=== PATIENT | male | born 1975 | race Two or more races ===

== ENCOUNTER → 2016-09-15 | Outpatient (CLI) | payer OTHER | END | disposition home or self-care (01) | LOC: LAB 08:05 | DX: E78.4 Other hyperlipidemia (principal); E03.9 Hypothyroidism, unspecified; R73.02 Impaired glucose tolerance (oral) | CPT/HCPCS: 36415; 80061; 83036; 84443 ==

== ENCOUNTER 2018-06-02 11:27 | Day surgery (SDC) | payer OTHER ==
[~2018-06-02] VITALS: Ht 170.2 cm; Wt 91.9 kg
--- NOTE | 2018-06-02 12:00 | NUR ---
First contact with patient: Patient reports rectal pain without known trauma, denies rectal bleeding. Patient is alert and appropriate, in no apparent distress at this time. Call [facility] place within reach, patient demonstrates appropriate use of call [facility].
--- NOTE | 2018-06-02 12:14 | NUR ---
Patient up to restroom to provide urine sample, ambulates with a steady gait.
[2018-06-02] MEDS ORDERED: MORPHINE SULFATE 4 MG/ML, 1ML ONE (12:17)
[2018-06-02] MEDS ORDERED: ONDANSETRON 2MG/ML, 2ML ONE (12:17)
[2018-06-02 12:24] LABS: BASOPHILS # (AUTO) 0.09 x10^3/uL (0-0.1); BASOPHILS % (AUTO) 1 % (0-1); EOSINOPHILS # (AUTO) 0.03 x10^3/uL (0-0.4); EOSINOPHILS % (AUTO) 0 % (1-7); LYMPHOCYTES # (AUTO) 1.49 x10^3/uL (1-3.4); LYMPHOCYTES % (AUTO) 14 % (22-44); MD NO; MEAN CORPUSCULAR HEMOGLOBIN 29.8 pg (27.5-34.5); MEAN CORPUSCULAR HGB CONC 33.8 g/dL (33.2-36.2); MEAN PLATELET VOLUME 7.8 fL (7.4-10.4); MONOCYTES # (AUTO) 0.88 x10^3/uL (0.2-0.8); MONOCYTES % (AUTO) 8 % (2-9); NEUTROPHILS # (AUTO) 8.09 x10^3/uL (1.8-6.8); NEUTROPHILS % (AUTO) 77 % (42-75); PLATELET COUNT 295 x10^3/uL (130-400); RED BLOOD COUNT 4.93 x10^6/uL (4.38-5.82); RED CELL DISTRIBUTION WIDTH 12.4 % (9.4-14.8)
[2018-06-02] MEDS ORDERED: ONDANSETRON 2MG/ML, 2ML IVPush ONE (12:30)
[2018-06-02] MEDS ORDERED: MORPHINE SULFATE 4 MG/ML, 1ML IVPush PRN ×2 (12:30→17:00)
[2018-06-02 12:33] LABS: ALBUMIN 3.6 g/dL (3.4-5.0); ANION GAP 3 mmol/L (5-15); CALCIUM 8.6 mg/dL (8.5-10.1); CHLORIDE 110 mmol/L (98-107); CREATININE 0.97 mg/dL (0.7-1.3)
--- NOTE | 2018-06-02 13:06 | NUR ---
Patient transported for ct scan.
[2018-06-02] MEDS ORDERED: OMNIPAQUE 350 MG/ML, 100ML BOTTLE ONE (13:27)
[2018-06-02 14:08] LABS: MICROSCOPIC NOT IND
[2018-06-02 14:19] LABS: CULTURE INDICATED? NO
--- NOTE | 2018-06-02 14:25 | NUR ---
Patient is waiting to discuss results with provider, call [facility] within reach. Last food/drink at 1100am today.
--- NOTE | 2018-06-02 15:08 | NUR ---
Report to ROBERTA Duarte RN.
[2018-06-02] MEDS ORDERED: FENTANYL PF 250 MCG/5ML ONE (16:40)
[2018-06-02] MEDS ORDERED: MIDAZOLAM 1 MG/ML, 2ML ONE (16:40)
[2018-06-02] MEDS ORDERED: BUPIVACAINE/PF-EPI 0.5% 1:200K ONE (16:50)
[2018-06-02] MEDS ORDERED: PROPOFOL 10 MG/ML, 20ML ONE (16:54)
[2018-06-02] MEDS ORDERED: SUCCINYLCHOLINE 20 MG/ML, 10ML ONE (16:54)
[2018-06-02] MEDS ORDERED: ROCURONIUM 10MG/ML,5ML ONE (16:54)
[2018-06-02] MEDS ORDERED: CEFOTETAN 2 GM ONE (16:54)
[2018-06-02] MEDS ORDERED: ONDANSETRON 2MG/ML, 2ML IV PRN (17:00)
[2018-06-02] MEDS ORDERED: MEPERIDINE/PF 25MG/0.5ML IVPush PRN (17:00)
[2018-06-02] MEDS ORDERED: HYDROmorphone 2 MG/ML, 1ML IVPush PRN (17:00)
[2018-06-02] MEDS ORDERED: hydrALAzine 20 MG/ML, 1ML IV PRN (17:00)
[2018-06-02] MEDS ORDERED: PROMETHAZINE 25 MG SUPP PR PRN (17:00)
[2018-06-02] MEDS ORDERED: ACETAMINOPHEN 325 MG TABLET PO PRN (17:00)
[2018-06-02] MEDS ORDERED: PROMETHAZINE 25 MG/ML, 1ML IM PRN ×2 (17:00)
[2018-06-02] MEDS ORDERED: PROMETHAZINE 25 MG/ML, 1ML IV PRN (17:00)
[2018-06-02] MEDS ORDERED: FENTANYL PF 100 MCG/2ML IV PRN (17:00)
[2018-06-02] MEDS ORDERED: PROMETHAZINE 12.5 MG SUPP PR PRN (17:00)
[2018-06-02] MEDS ORDERED: ONDANSETRON ODT 8 MG PO PRN (17:00)
[2018-06-02] MEDS ORDERED: OXYcodone 5 MG/5 ML ORAL.SOL UDC PO PRN (17:00)
[2018-06-02] MEDS ORDERED: LABETALOL 5MG/ML, 20ML IV PRN (17:00)
[2018-06-02] MEDS ORDERED: FENTANYL PF 100 MCG/2ML ONE (17:45)
[2018-06-02] MEDS ORDERED: MEPERIDINE/PF 25MG/ML,1ML ONE (17:45)
[2018-06-02] MEDS ORDERED: OXYcodone 5 MG/5 ML ORAL.SOL UDC ONE (17:45)
[2018-06-02] MEDS ORDERED: HYDROcodone/APAP 5/325 TABLET PO PRN (19:30)
[2018-06-02 19:42] VITALS: BP 108/67
[2018-06-02] MEDS ORDERED: HYDR-3240 PO (21:34)
[2018-06-02] MEDS ORDERED: DOCU-131 PO (21:35)
== END 2018-06-02 23:34 | disposition home or self-care (01) ==
LOC: ED 13:44 → UNDOADMIN 14:46 → 4NOR 14:46 → ED 14:46 → SDC 17:00 → ED 18:44 → 4NOR 18:44 → UNDODISIN 23:10 → SDC 23:34
PROVIDERS: ATTEND Student in an Organized Health Care Education/Training Program
DX: K61.0 Anal abscess (principal)
CPT/HCPCS: 36415; 46050; 74177; 80048; 81003; 82040; 85025; 87070; 87075; 87076; 87077; 87147; 87186; 87205; 99285; J0330; J2175; J2250; J2405; J2704; J3010; J3490; Q9967; G0378

== ENCOUNTER → 2020-05-13 | Outpatient (CLI) | payer OTHER ==
[~2020-05-13] MED LIST: DOCU-131 PO; HYDR-1067 PO
[2020-05-13 07:39] LABS: ALBUMIN 3.9 g/dL (3.4-5.0); ANION GAP 7 mmol/L (5-15); CHLORIDE 108 mmol/L (98-107)
[2020-05-13 07:51] LABS: ALANINE AMINOTRANSFERASE 42 U/L (12-78); ALKALINE PHOSPHATASE 51 U/L (45-117); BILIRUBIN,TOTAL 0.4 mg/dL (0.2-1.0); CHOL/HDL RATIO 7.1; CHOLESTEROL, TOTAL 241 mg/dL (140-239); CREATININE 0.97 mg/dL (0.7-1.3); HDL CHOL % 14 % (26-37); HDL CHOLESTEROL (DIRECT) 34 mg/dL (40-60); LDL CHOLESTEROL,CALCULATED 128 mg/dL (54-169); LDL/HDL RATIO 3.8 (0.5-3.0); TOTAL PROTEIN 7.8 g/dL (6.4-8.2); TRIGLYCERIDES 396 mg/dL (50-200); VLDL CHOLESTEROL 79 mg/dL (0-25)
[2020-05-13 08:21] LABS: FREE T4 (FREE THYROXINE) 0.99 ng/dL (0.76-1.46)
== END | disposition home or self-care (01) ==
LOC: LAB 07:10
PROVIDERS: ATTEND Nurse Practitioner Family
DX: E78.49 Other hyperlipidemia (principal); R73.02 Impaired glucose tolerance (oral); E66.9 Obesity, unspecified
CPT/HCPCS: 36415; 80053; 80061; 84439; 84443

== ENCOUNTER → 2020-07-11 | Outpatient (CLI) | payer OTHER ==
[~2020-07-11] MED LIST changes: -HYDR-1067 PO; +HYDR-2214 PO
== END | disposition home or self-care (01) ==
LOC: LAB 06:50
PROVIDERS: ATTEND Nurse Practitioner Family
DX: R79.89 Other specified abnormal findings of blood chemistry (principal)
CPT/HCPCS: 36415; 86376